=== PATIENT | male | born 1970 | race Caucasian/White ===

== ENCOUNTER 2018-07-26 18:47 | Inpatient (IN) | payer MEDICAID ==
[~2018-07-26] VITALS: Ht 180.3 cm; Wt 128.1 kg
--- NOTE | ~2018-07-26 | OP ---
PATIENT NAME: KARLEE SAAVEDRA MEDICAL RECORD: [id number] :74 LOCATION:D.M2 D.2113 ADMISSION DATE:07/26/18 SURGEON: RODRIGUEZ WEBSTER MD DATE OF OPERATION: 07/28/2018 DATE OF SERVICE: 07/28/2018 PROCEDURES: 1. Left heart catheterization. 2. Selective coronary angiography. 3. Left ventriculogram. INDICATION: Chest pain compatible with angina, cardiomyopathy. PROCEDURE IN DETAIL: After informed consent was obtained and after a detailed description of the risks, benefits as well as alternative therapies, the patient elected to proceed with angiogram and heart catheterization. The right radial area was prepped and draped in normal sterile fashion. Right radial artery was cannulated via modified Seldinger technique with placement of 5-Kosovan sheath. All catheters exchanged through this sheath. FINDINGS: Left ventriculogram was performed in standard 30-degree MACE view, reveals global hypokinesis throughout all segments. Overall ejection fraction is 30%. SELECTIVE CORONARY ANGIOGRAPHY: Left main, left anterior descending, left circumflex, right coronary artery are all smooth-walled vessels with no angiographic evidence of coronary artery disease. OVERALL IMPRESSION: 1. No angiographic evidence of coronary artery disease. 2. Normal left heart pressures. 3. Normal left ventricular systolic function. Cardiomyopathy is nonischemic. Center medical management on treatment of the cardiomyopathy. TRANSINT:[id number] Voice Confirmation ID: [id number] DOCUMENT ID: [id number] RODRIGUEZ WEBSTER MD at 0924 CC: [id number] DICTATION DATE: 07/28/18 1321 WATERPROOF BAG SEWER: 07/28/18 1339 DIS IN 07/29/18 [address] [place] [address]
--- NOTE | ~2018-07-26 | MORECARE ---
CASE MANAGEMENT DISCHARGE SUMMARY PATIENT: KARLEE SAAVEDRA UNIT: [id number] ADM DATE: 07/26/18 AGE: 48 : 74 SEX: M ROOM/BED: D.2113 AUTHOR: KWAKU HARPER PHYSICIAN: REFERRING PHYSICIAN: PAULINA CHANEY MD DATE OF SERVICE: 07/31/18 Discharge Plan Patient Name: KARLEE SAAVEDRA Facility: [facility]:[place] : 1970 Planned Disposition: Home Anticipated Discharge Date: 07/29/18 Discharge Date: 07/29/2018 Expected LOS: 3 Initial Reviewer: [email or web address] Initial Review Date: 07/31/2018 Generated: 07/31/18 9:11 am Patient Name: KARLEE SAAVEDRA Page [id number] at 0811 All edits/amendments must be made on the electronic document DICTATION DATE: 07/31/18810 WEATHERIZATION TECHNICIAN: JAI 07/31/18810 RPT#: [id number] DC DATE:07/29/18 STATUS: DIS IN [facility] [address] [place] [address] END OF REPORT
--- NOTE | ~2018-07-26 | CN ---
PATIENT NAME:KARLEE SAAVEDRA MEDICAL RECORD: [id number] : 74 LOCATION:D. D.2113 ADMIT DATE: 07/26/18 ACCOUNT: [id number] CONSULTING PHYSICIAN: RODRIGUEZ WEBSTER MD REFERRING PHYSICIAN: PAULINA CHANEY MD DATE OF CONSULTATION: 07/27/2018 DIAGNOSES: 1. Elevated troponin, non-Q-wave myocardial infarction. 2. Coronary artery disease. 3. Lower extremity edema. 4. Shortness of breath, congestive heart failure. 5. Anemia. 6. Family history of coronary artery disease. 7. Smoking. HISTORY OF PRESENT ILLNESS: This is a gentleman with no previous cardiac history who presents with a 1-month of lower extremity edema and shortness of breath, found to have an elevated troponin, nonspecific ST-T wave abnormalities on his EKG and marked lower extremity edema. PHYSICAL EXAMINATION: GENERAL APPEARANCE: Well-nourished, well-developed, appears stated age. Level of distress, comfortable. PSYCHIATRIC: Mental status, alert, normal affect. Orientation, oriented to time, place and person. EYES: Lids and conjunctiva, noninjected. No discharge, no pallor. ENT: Lips, teeth, gums, normal dentition. Oropharynx, no cyanosis, no pallor. NECK: Carotid arteries, bilateral normal upstroke, no bruits, no thrills. JUGULAR VEINS: No jugular venous pressure or distention. CERVICAL LYMPH NODES: Nontender, nonenlarged. THYROID: Not enlarged. Nontender. No nodules. LUNGS: Respiratory effort, unlabored. CHEST: Normal curvature. No thoracic deformity. No chest wall tenderness. Percussion, resonant. Auscultation, clear. No wheezes, no rales, no rhonchi. CARDIOVASCULAR: Precordial exam, nondisplaced. No heaves or pericardial thrills. Rate and rhythm, regular. Heart sounds, normal S1, normal S2. No S3, no gallop, no rub. Systolic murmur, not heard. Diastolic murmur, not heard. EXTREMITIES: No cyanosis, no edema. Peripheral pulses, full and equal in all extremities, except as noted. No bruits appreciated. ABDOMEN: Soft, nondistended. Normal aorta. No bruit. Nontender. No masses. Liver, nontender, no hepatomegaly. Spleen, nontender, no splenomegaly. MUSCULOSKELETAL: No joint tenderness. No joint swelling. No erythema. NEUROLOGICAL: Normal gait, normal strength, normal tone. SKIN: Warm and dry. OVERALL IMPRESSION: Non-Q-wave myocardial infarction with edema most likely he has hemodynamically significant coronary artery disease and decreased left ventricular function. We will start him on carvedilol give him diuresis, aspirin and Plavix. Plan for cardiac catheterization in the a.m. after IV diuresis today. TRANSINT:[id number] Voice Confirmation ID: [id number] DOCUMENT ID: [id number] CONSULT REPORT [id number] KARLEE SAAVEDRA, RODRIGUEZ COPPOLA at 0924 CC: [id number] DICTATION DATE: 07/27/18815 REELER OPERATOR: 07/27/18 08 DIS IN 07/29/18 [facility] [address] [place] [address]
--- NOTE | ~2018-07-26 | HEMODYNAMI ---
PATIENT:KARLEE SAAVEDRA MEDICAL RECORD: [id number] : 74 [id number] ADMISSION DATE: 07/26/18 Generatedon:07/28/201813:19 Patient name: KARLEE SAAVEDRA Patient #: [id number] SSN: : 1970 Date of study: 07/28/2018 Page: Of Hemodynamic Procedure Report Patient Data Patient Demographics Procedure consent was obtained First Name: KARLEE Gender: Male Last Name: QUENTIN : 1970 Patient #: [id number] Age: 48 year(s) Race: Unknown Additional ID: [id number] Contact details [address]: [address] [place] [address] State: [place] City: [place] Zip code: [address] Past Medical History Allergies: No known allergies Admission Admission Data Admission Date: 07/26/2018 Admission Time: 22:23 Room #: [facility] Height (in.): 71 BSA: 2.43 (m2) Height (cm.): 180.34 BMI: 38.87 (kg/m2) Weight (lbs.): 278.67 Weight (kg.): 126.4 Lab Results Lab Result Date: 07/28/2018 Lab Result Time: 0:00 Biochemistry Name Units Result Min Max BUN mg/dl 14 --(--*-)-- 7 18 Creatinine mg/dl 1 --(--*-)-- 0.6 1.3 CBC Name Units Result Min Max Hemoglobin g/dl 12.1 *-(----)-- 13.5 17.5 Procedure Procedure Types Cath Procedure Diagnostic Procedure [facility] w/Coronaries Sedation Charges Moderate Sedation up to 15 minutes Procedure Description Procedure Date Procedure Date: 07/28/2018 Procedure Start Time: 13:11 Procedure End Time: 13:19 Procedure Staff Name Function Enmanuel Kulkarni MD Performing Physician Jelena Meneses RT Monitor Raz Gutierrez RN Nurse Trevor Mccurdy RN Nurse Bridgett Cazares RT Scrub Procedure Data Cath Procedure Fluoroscopy Diagnostic fluoroscopy Total fluoroscopy Time: 1.6 time: 1.6 min min Diagnostic fluoroscopy Total fluoroscopy dose: 886 dose: 886 mGy mGy Contrast Material Contrast Material Type Amount (ml) Isovue 300 57 Entry Location Entry Primary Successful Side Size Upsize Upsize Entry Closure [place] ccessful Closure Location (Fr) 1 (Fr) 2 (Fr) Remarks Device Remarks Radial Right 6 Fr Mechanical artery Short Compression Estimated blood loss: 10 ml Diagnostic catheters Device Type Used For End Catheter Placement DIAGNOSTIC [place] 110cm 5 Left Coronary Fr catheter ([id number]) Angiography Procedure Complications No complications Procedure Medications Medication Administration Route Dosage Oxygen etCO2 Nasal cannula 2 l/min Heparin Flush Bag added to field 2 bags (1000units/500ml NS) 0.9% NaCl I.V. 100 ml/hr Fentanyl I.V. 50 mcg Versed I.V. 1 mg Fentanyl I.V. 50 mcg Versed I.V. 1 mg Fentanyl I.V. 50 mcg Radial Cocktail added to field 1 syringe (Verapomil 2mg/Nitro 400mcg/Heparin 1500units) Radial Cocktail I.A. 1 syringe (Verapomil 2mg/Nitro 400mcg/Heparin 1500units) Fentanyl I.V. 50 mcg Hemodynamics Rest BSA: 2.43 (m2) HGB: 12.1 (g/dl) O2 Consumption: Estimated: 308.4 (ml/min) O2 Con sumption indexed: Estimated:126.91 (ml/min/m) Heart Rate: 87 (bpm) Snapshots Pre Cath Intra NCS Post Cath Vital Signs Time Heart Resp SPO2 etCO2 NIBP (mmHg) Rhythm Pain Sedation Rate (ipm) (%) (mmHg) Status Level (bpm) 12:56:39 85 17 100 0 145/106(121) NSR 0 (11) 10(A) , No pain 13:00:50 85 16 100 0 147/107(123) NSR 0 (11) 10(A) , No pain 13:05:05 83 17 92 0 146/107(127) NSR 0 (11) 10(A) , No pain 13:09:14 85 16 97 0 127/100(114) NSR 0 (11) 10(A) , No pain 13:13:24 79 16 98 0 139/86(112) NSR 0 (11) 9(A) , No pain 13:17:32 80 16 94 0 128/89(104) NSR 0 (11) 9(A) , No pain 13:18:42 80 17 86 0 136/89(103) NSR 0 (11) 9(A) , No pain Medications Time Medication Route Dose Verified Delivered Reason Notes Effectiveness by by 12:58:20 Oxygen etCO2 2 l/min Enmanuel Crandall Per Nasal Shad Gutierrez RN physician cannula 12:58:54 Heparin Flush added 2 bags Enmanuel Crandall used for Bag to Shad Gutierrez RN procedure (1000units/500ml field NS) 12:59:03 0.9% NaCl I.V. 100 Enmanuel Crandall Per ml/hr Shad Gutierrez RN physician 13:03:25 Fentanyl I.V. 50 mcg Enmanuel Crandall for sedation Shad Gutierrez RN 13:03:31 Versed I.V. 1 mg Enmanuel Crandall for anxiety Shad Gutierrez RN 13:05:22 Fentanyl I.V. 50 mcg Enmanuel Crandall for sedation Shad Gutierrez RN 13:05:26 Versed I.V. 1 mg Enmanuel Crandall for anxiety Shad Gutierrez RN 13:07:34 Fentanyl I.V. 50 mcg Enmanuel Crandall for sedation Shad Gutierrez RN 13:11:43 Fentanyl I.V. 50 mcg Enmanuel Crandall for sedation Shad Gutierrez RN 13:12:13 Radial Cocktail added 1 Enmanuel Crandall used for (Verapomil to syringe Shad Gutierrez RN procedure 2mg/Nitro field 400mcg/Heparin 1500units) 13:12:19 Radial Cocktail I.A. 1 Enmanuelkeli Singer for (Verapomil syringe Shad Kulkarni MD vasodilation 2mg/Nitro 400mcg/Heparin 1500units) Procedure Log Time Note 12:25:35 Patient Height : 71 inches 12:25:43 Patient Weight : 278.67 lbs 12:26:23 Lab Result : Creatinine 1 mg/dl 12:26:23 Lab Result : BUN 14 mg/dl 12:26:23 Lab Result : Hemoglobin 12.1 g/dl 12:26:56 Diagnostic Cath status Elective 12:27:01 Raz Gutierrez RN sent for patient. Start room use. 12:55:36 Vital chart was started 12:57:47 Time tracking: Regular hours (M-F 7:00 - 5:00) 12:57:52 Plan of Care:Hemodynamics will remain stable., Cardiac rhythm will remain stable., Comfort level will be maintained., Respiratory function will remain adequate., Patient/ family verbilizes understanding of procedure., Procedure tolerated without complication., Recovers from procedure without complications.. 12:57:59 Patient received from Med II to CCL 2 Alert and oriented. Tansferred to table in Supine position. 12:58:00 Warm blankets applied, and jesenia hugger turned on for patient comfort. 12:58:01 Correct patient and procedure confirmed by team. 12:58:02 Signed procedure consent form obtained from patient. 12:58:03 ECG and BP/O2 sat monitors applied to patient. 12:58:06 Baseline sample Acquired. 12:58:10 Rhythm: sinus rhythm 12:58:11 Full Disclosure recording started 12:58:16 H&P Date Dictated: 07/27/2018 Within 30 days and on chart.. 12:58:18 Pre-procedure instructions explained to patient. 12:58:19 Family in waiting room. 12:58:20 Oxygen 2 l/min etCO2 Nasal cannula was administered by Raz Gutierrez RN; Per physician; 12:58:21 Patient NPO since Midnight. 12:58:27 Patient allergic to No known allergies 12:58:30 Is the patient allergic to Iodine/contrast media? No. 12:58:32 Is patient on blood thinner?Yes 12:58:35 ACC The patient was administered the following blood thiners within the last 24 hours: ACCPlavix 12:58:39 Patient diabetic? No. 12:58:42 Snore? Yes 12:58:43 Sleep apnea? Yes 12:58:54 Heparin Flush Bag (1000units/500ml NS) 2 bags added to field was administered by Raz Gutierrez RN; used for procedure; 12:59:03 0.9% NaCl 100 ml/hr I.V. was administered by Raz Gutierrez RN; Per physician; 12:59:06 Airway obstruction? Yes Possible COPD\Emphyzema 12:59:17 IV patent on arrival in right forearm with 0.9% NaCl at [facility]. 12:59:23 Lab results completed and on chart. 12:59:27 Right Radial & Right Groin area was prepped with chlora-prep and draped in sterile fashion 12:59:28 Alarms reviewed by RYousif N. 12:59:28 Sharps counted by scrub and verified by R.N. 12:59:29 Physician paged 12:59:30 Physician arrived 12:59:31 --------ALL STOP TIME OUT------ 12:59:31 Final Timeout: patient, procedure, and site verified with staff and physician. All members of the team are in agreement. 12:59:35 Right Radial & Right Groin site verified by team. 12:59:40 Physical assessment completed. ASA score P 2 - A patient with mild systemic disease as per Enmanuel Kulkarni MD. 12:59:44 Sedation plan: IV Moderate Sedation Medication:Versed, Fentanyl 12:59:49 Use device set Radial Dx or PCI 12:59:52 ACIST Syringe (59398) opened to sterile field. 12:59:53 Medline Cath Pack ([id number]) opened to sterile field. 12:59:53 Bag Decanter (2002S) opened to sterile field. 12:59:54 DIAGNOSTIC WIRE .035 260cm J wire (918905) opened to sterile field. 12:59:55 ACIST Hand Control (78035) opened to sterile field. 12:59:55 ACIST Manifold (98596) opened to sterile field. 12:59:56 Tegaderm 4 x 4 (1626W) opened to sterile field. 12:59:57 MBrace Wrist Support ([id number]) opened to sterile field. 12:59:59 NEEDLE Cook 21G 4cm Radial (Y30834) opened to sterile field. 13:00:02 SHEATH 6Fr Prelude Radial ([id number]) opened to sterile field. 13:03:25 Fentanyl 50 mcg I.V. was administered by Raz Gutierrez RN; for sedation; 13:03:31 Versed 1 mg I.V. was administered by Raz Gutierrez RN; for anxiety; 13:03:53 Zero performed for pressure channel P1 13:05:22 Fentanyl 50 mcg I.V. was administered by Raz Gutierrez RN; for sedation; 13:05:26 Versed 1 mg I.V. was administered by Raz Gutierrez RN; for anxiety; 13:07:34 Fentanyl 50 mcg I.V. was administered by Raz Gutierrez RN; for sedation; 13:11:42 Procedure started. 13:11:43 Fentanyl 50 mcg I.V. was administered by Raz Gutierrez RN; for sedation; 13:11:54 Local anesthetic to right radial artery with Lidocaine 2% by Enmanuel Kulkarni MD.INITIAL ACCESS ONLY 13:12:05 A 6 Fr Short sheath was inserted into the Right Radial artery 13:12:13 Radial Cocktail (Verapomil 2mg/Nitro 400mcg/Heparin 1500units) 1 syringe added to field was administered by Raz Gutierrez RN; used for procedure; 13:12:19 Radial Cocktail (Verapomil 2mg/Nitro 400mcg/Heparin 1500units) 1 syringe I.A. was administered by Enmanuel Kulkarni MD; for vasodilation; 13:12:40 A DIAGNOSTIC [place] 110cm 5 Fr catheter (355561) was advanced over the wire and used for Left Coronary Angiography. 13:12:55 J wire advanced. 13:13:04 LV angiography performed. 13:14:25 EF : 25 % 13:14:39 LCA angiography performed. 13:16:06 RCA angiography performed. 13:16:08 Catheter removed. 13:16:30 Sheath removed intact; hemostasis achieved with Mechanical Compression to the Right Radial artery. 13:16:35 TR BAND Large ([id number]) opened to sterile field. 13:16:38 Procedure ended.(Physican Out) 13:17:11 Fluoroscopy time 01.60 minutes. 13:17:21 Fluoroscopy dose: 886 mGy 13:17:21 Flurop Dose total: 886 13:17:27 Contrast amount:Isovue 300 57ml. 13:17:29 Sharps counted by scrub and verified by R.N. 13:17:36 TR band inflated with 12cc of air. 13:17:37 Insertion/operative site no bleeding no hematoma. 13:17:44 Post Procedure Pulses reassessed and unchanged 13:17:48 Post-procedure physical assessment completed. ASA score P 2 - A patient with mild systemic disease as per Enmanuel Kulkarni MD. 13:17:51 Post procedure rhythm: unchanged. 13:17:54 Estimated blood loss: 10 ml 13:18:00 Post procedure instruction explained to patient.Patient verbalizes understanding. 13:18:19 Procedure and supply charges have been captured, reviewed, submitted and are correct. 13:18:48 Procedure Complication : No complications 13:18:52 Vital chart was stopped 13:18:53 See physician's report for complete and final results. 13:18:55 Report given to Pre/Post Procedure Room. 13:18:59 Patient transfered to Pre/Post Procedure Room with Bed. 13:19:01 Procedure ended. 13:19:01 Full Disclosure recording stopped 13:19:04 End room use (Document Last) Device Usage Item Name Manufacture Quantity Catalog Number Hospital Part Current M inimal Lot# / Charge Number Stock Stock Serial# Code ACIST Syringe Acist 1 03048 884725 815848 681433 2 0 (06585) Medical Systems Inc Medline Cath Cardinal 1 [id number] 223735 82202 132641 5 [employer]Thor.com ([id number]) Bag Decanter Microtek 1 2001S 459603 61702 283477 5 (2001S) Medical Inc. DIAGNOSTIC WIRE St Arpit 1 830544 700608 507198 190115 3 0 .035 260cm J wire (725600) ACIST Hand Acist 1 64406 775829 327759 021253 5 Control (57437) Medical Systems Inc ACIST Manifold Acist 1 81352 472224 600236 532824 5 (40248) Medical Systems Inc Tegaderm 4 x 4 3M 1 1626W 443472 899816 126379 5 (1626W) MBrace Wrist Advanced 1 140-0250-00 212225 13553 359038 5 Support Vascular ([id number]) Dynamics NEEDLE Cook 21G Cook Medical 1 [id number] 112751 934300 688819 5 4cm Radial (T82948) SHEATH 6Fr Merit 1 [id number] 747545 102831 822028 5 Prelude Radial Medical ([id number]) DIAGNOSTIC Terumo 1 40-5301 722396 603185 273480 5 [place] 110cm 5 Fr catheter (508524) TR BAND Large Terumo 1 [id number] 496697 205940 965573 4 0 ([id number]) Signature Audit [place] Stage Time Signature Unsigned Intra-Procedure 07/28/2018 Jelena Meneses 1:19:48 PM RT(R) Signatures Monitor : Jelena Meneses Signature : RT Date : Time : [address] [address] [address]
--- NOTE | ~2018-07-26 | EC ---
PATIENT:KARLEE SAAVEDRA DATE OF SERVICE: 07/26/18 SEX: M MEDICAL RECORD: [id number] DATE OF : 74 LOCATION:D.M2 D.211 AGE OF PATIENT: 48 ADMISSION DATE: 07/26/18 REFERRING PHYSICIAN: INTERPRETING PHYSICIAN: RODRIGUEZ KULKARNI MD ECHOCARDIOGRAM REPORT ECHO CHARGES 4 ECHO COMPLETE Date: 07/27/18 CLINICAL DIAGNOSIS: EDEMA ECHOCARDIOGRAPHIC MEASUREMENTS (adult normal given) AC root (d.<3.7cm) 4.0 cm LV Septum d (<1.2 cm> 1.2 cm Valve Excursion 1.9 cm LV Septum (systole) 1.4 cm Left Atria (s.<4.0cm> 4.0 cm LVPW d(<1.2cm) 1.6 cm RV (d.<2.3cm) 5.0 cm LVPW (sytole) 1.7 cm LV diastole(<5.6CM) 6.9 cm MV E-F(>70mm/sec) cm LV systole 5.5 cm LVOT Diameter 2.0 cm MV exc.(>10mm) 1.2 cm Est.ejection fraction (50-75%) % DOPPLER: LVIT cm/sec A cm/sec E 126 cm/sec LA cm/sec RVSP 35 mmHg LVOT 93 cm/sec AOP1/2T m/s Asc. Ao 164 cm/sec RVOT 93 cm/sec RA cm/sec PA 143 cm/sec AV Gradient Peak 10.75mmHg AV Mean 5.37 mmHg AV Area 1.8 cm MV Gradient Peak 6.45 mmHg MV Mean 2.05 mmHg MV Area cm COMMENTS: Assistant Teacher Primary: Divya LOUIS Oil Gauger: 1 Dr. Kulkarni TAPE# PACS Pericardial Effusion N DATE OF SERVICE: 07/27/2018 ECHOCARDIOGRAM DATE OF SERVICE: 07/27/2018 FINDINGS: 1. Left ventricular chamber size is mildly dilated. Left ventricular systolic function is moderately reduced. Overall ejection fraction in the 35% range. 2. Left atrium is upper limits of normal at 4.0 cm. Right atrium and right ECHOCARDIOGRAM REPORT [id number] KARLEE SAAVEDRA ventricle chamber sizes are mildly dilated. 3. Valvular structures have normal structure and motion. 4. Doppler interrogation reveals mild mitral regurgitation, mild tricuspid regurgitation, no other valvular insufficiency or stenosis. Pulmonary systolic pressure is normal estimated 35 mmHg. 5. No evidence of pericardial effusion or left ventricular thrombus. TRANSINT:[id number] Voice Confirmation ID: [id number] DOCUMENT ID: [id number] RODRIGUEZ KULKARNI MD at 0924 CC: [id number] DICTATION DATE: 07/27/18 1205 JEWEL HOLE FINISH OPENER: 07/27/18 1218 DIS IN 07/29/18 [place] [id number] [place] [id number]
[2018-07-26 20:14] LABS: BASOPHILS 0.4 % (0-2); EOSINOPHILS 1.6 % (0-7); HEMATOCRIT 39.4 % (42.0-54.0); HEMOGLOBIN 12.1 g/dL (13.5-17.5); IMMATURE GRANULOCYTES 0.1 % (0-5); LYMPHOCYTES 20.5 % (15-50); MCHC 30.7 g/dL (31.0-37.0); MEAN PLATELET VOLUME 9.6 fL (7.4-10.4); MONOCYTES 10.3 % (2-11); NEUTROPHILS 67.1 % (40-80); PLATELET COUNT 296 10x3/uL (130-400); RBC 5.25 10x6/uL (4.20-6.10); RDW 16.2 % (11.5-14.5); WBC 6.7 10x3/uL (4.8-10.8)
[2018-07-26 20:28] LABS: ALBUMIN 2.4 g/dL (3.4-5.0); ALKALINE PHOSPHATASE 157 U/L (46-116); ALT (SGPT) 32 U/L (10-68); BILIRUBIN - TOTAL 0.72 mg/dL (0.2-1.3); CALC OSMOLALITY 279 mosm/kg (275-300); CALCIUM 8.1 mg/dL (8.5-10.1); CARBON DIOXIDE 30.1 mmol/L (21.0-32.0); CHLORIDE - SERUM 101 mmol/L (98-107); CREATININE - SERUM 0.9 mg/dL (0.6-1.3); GLUCOSE 107 mg/dL (74-106); POTASSIUM - SERUM 3.9 mmol/L (3.5-5.1); PROTEIN - SERUM 6.2 g/dL (6.4-8.2); SODIUM 140 mmol/L (136-145); UREA NITROGEN 15 mg/dL (7-18); eGFR NON AFRICAN AMERICAN > 90 mL/min (90-120)
[2018-07-26 20:41] LABS: CKMB 3.9 U/L (0.0-3.6); CREATINE KINASE 178 UL (21-232); PRO BNP 5381 pg/mL (0-125)
[2018-07-26 20:42] LABS: TROPONIN-I 0.278 ng/mL (0.000-0.060)
[2018-07-27 00:19] VITALS: Ht 180.3 cm; Wt 128.1 kg
[2018-07-27 00:46] VITALS: BP 158/110
[2018-07-27 02:57] LABS: BASOPHILS 0.5 % (0-2); EOSINOPHILS 2.4 % (0-7); HEMATOCRIT 39.2 % (42.0-54.0); HEMOGLOBIN 12.1 g/dL (13.5-17.5); IMMATURE GRANULOCYTES 0.3 % (0-5); LYMPHOCYTES 22.1 % (15-50); MCH 23.3 pg (26.0-34.0); MCHC 30.9 g/dL (31.0-37.0); MCV 75.4 fL (80.0-100.0); MEAN PLATELET VOLUME 9.8 fL (7.4-10.4); MONOCYTES 12.3 % (2-11); NEUTROPHILS 62.4 % (40-80); PLATELET COUNT 322 10x3/uL (130-400); RDW 16.2 % (11.5-14.5); WBC 7.4 10x3/uL (4.8-10.8)
[2018-07-27 03:23] LABS: CALC OSMOLALITY 276 mosm/kg (275-300); CALCIUM 8.2 mg/dL (8.5-10.1); CARBON DIOXIDE 32.5 mmol/L (21.0-32.0); CHLORIDE - SERUM 100 mmol/L (98-107); GLUCOSE 102 mg/dL (74-106); PRO BNP 5340 pg/mL (0-125); SODIUM 138 mmol/L (136-145); TROPONIN-I 0.277 ng/mL (0.000-0.060); UREA NITROGEN 14 mg/dL (7-18); eGFR NON AFRICAN AMERICAN 85 mL/min (90-120)
[2018-07-27 04:00] VITALS: BP 149/101
[2018-07-27 08:48] VITALS: BP 139/96
[2018-07-27 10:37] LABS: CHOL - HDL RATIO 3.1 ratio (2.3-4.9); LDL-HDL RATIO 1.9 ratio (1.5-3.5); TROPONIN-I 0.259 ng/mL (0.000-0.060)
[2018-07-27 12:21] VITALS: BP 110/70
[2018-07-27 12:32] LABS: % SATURATION 6 % (15-55); IRON 30 ug/dl (35-150); TOTAL IRON BIND CAPACITY 486 ug/dl (260-445)
[2018-07-27 12:35] LABS: UNSAT IRON BIND CAPACITY 456 ug/dl (150-375)
[2018-07-27 16:56] VITALS: BP 126/92
[2018-07-27 23:12] VITALS: BP 136/90
[2018-07-28 02:38] VITALS: BP 103/69
[2018-07-28 05:24] LABS: BASOPHILS 0.8 % (0-2); HEMATOCRIT 38.4 % (42.0-54.0); HEMOGLOBIN 11.6 g/dL (13.5-17.5); IMMATURE GRANULOCYTES 0.1 % (0-5); MCH 22.8 pg (26.0-34.0); MCHC 30.2 g/dL (31.0-37.0); MCV 75.6 fL (80.0-100.0); MONOCYTES 11.5 % (2-11); NEUTROPHILS 66.6 % (40-80); PLATELET COUNT 329 10x3/uL (130-400); RBC 5.08 10x6/uL (4.20-6.10); RDW 16.3 % (11.5-14.5); WBC 7.2 10x3/uL (4.8-10.8)
[2018-07-28 05:40] LABS: CALC OSMOLALITY 275 mosm/kg (275-300); CALCIUM 8.5 mg/dL (8.5-10.1); CARBON DIOXIDE 30.3 mmol/L (21.0-32.0); CHLORIDE - SERUM 99 mmol/L (98-107); CHOLESTEROL, TOTAL 141 mg/dL (0-200); CREATININE - SERUM 1.1 mg/dL (0.6-1.3); GLUCOSE 114 mg/dL (74-106); HDL CHOLESTEROL 47 mg/dL (32-96); LDL CHOLESTEROL 85 mg/dL (0-100); LDL-HDL RATIO 1.8 ratio (1.5-3.5); POTASSIUM - SERUM 3.8 mmol/L (3.5-5.1); SODIUM 137 mmol/L (136-145); TRIGLYCERIDE 48 mg/dL (30-200); UREA NITROGEN 14 mg/dL (7-18); eGFR NON AFRICAN AMERICAN 76 mL/min (90-120)
[2018-07-28 06:07] VITALS: BP 139/103
[2018-07-28 08:00] VITALS: BP 123/78
[2018-07-28 09:18] LABS: FOLATE (FOLIC ACID) - SERUM 12.1 ng/mL (>3.0)
[2018-07-28 14:50] LABS: UDS - AMPHET POSITIVE QUAL (NEGATIVE); UDS - BARB NEGATIVE QUAL (NEGATIVE); UDS - BENZO POSITIVE QUAL (NEGATIVE); UDS - COCAINE NEGATIVE QUAL (NEGATIVE); UDS - OPIATE POSITIVE QUAL (NEGATIVE); UDS - PCP NEGATIVE QUAL (NEGATIVE); UDS - THC NEGATIVE QUAL (NEGATIVE)
[2018-07-28 15:04] LABS: APPEARANCE CLEAR (CLEAR); BILIRUBIN 1+ (NEGATIVE); COLOR AMBER (YELLOW); GLUCOSE NEGATIVE (NEGATIVE); KETONE NEGATIVE (NEGATIVE); NITRITE NEGATIVE (NEGATIVE); PROTEIN 2+ mg/dL (NEGATIVE)
[2018-07-28 15:06] LABS: BACTERIA FEW /hpf (NONE SEEN); RED CELLS - URINE 0-5 /hpf (0-5); WHITE CELLS - URINE 0-5 /hpf (0-5)
[2018-07-28 20:00] VITALS: BP 121/90
[2018-07-29] VITALS: BP 100/68
[2018-07-29 05:18] LABS: BASOPHILS 0.6 % (0-2); EOSINOPHILS 0.6 % (0-7); HEMATOCRIT 42.7 % (42.0-54.0); HEMOGLOBIN 13.3 g/dL (13.5-17.5); IMMATURE GRANULOCYTES 0.1 % (0-5); LYMPHOCYTES 22.9 % (15-50); MCH 23.5 pg (26.0-34.0); MCHC 31.1 g/dL (31.0-37.0); MCV 75.4 fL (80.0-100.0); MEAN PLATELET VOLUME 10.2 fL (7.4-10.4); MONOCYTES 8.5 % (2-11); NEUTROPHILS 67.3 % (40-80); PLATELET COUNT 304 10x3/uL (130-400); RBC 5.66 10x6/uL (4.20-6.10); RDW 16.7 % (11.5-14.5)
[2018-07-29 05:34] LABS: CALC OSMOLALITY 274 mosm/kg (275-300); CALCIUM 8.1 mg/dL (8.5-10.1); CARBON DIOXIDE 32.1 mmol/L (21.0-32.0); CHLORIDE - SERUM 100 mmol/L (98-107); CREATININE - SERUM 1.1 mg/dL (0.6-1.3); GLUCOSE 113 mg/dL (74-106); POTASSIUM - SERUM 3.9 mmol/L (3.5-5.1); SODIUM 136 mmol/L (136-145); eGFR NON AFRICAN AMERICAN 76 mL/min (90-120)
[2018-07-29 05:54] LABS: UREA NITROGEN 19 mg/dL (7-18)
[2018-07-29 08:39] VITALS: BP 138/90
[2018-07-29 10:42] VITALS: BP 119/81
[2018-07-29] MEDS ORDERED: VIBRAMYCIN 100100 MG PO (15:33)
[2018-07-29] MEDS ORDERED: PLAVIX75 MG PO (15:33)
[2018-07-29] MEDS ORDERED: COREG12.5 MG PO (15:33)
[2018-07-29] MEDS ORDERED: ASPIRIN81 MG PO (15:34)
[2018-07-29] MEDS ORDERED: PROTONIX40 MG PO (15:34)
[2018-07-29] MEDS ORDERED: BENZONATATE200 MG PO (15:34)
[2018-07-29] MEDS ORDERED: LASIX40 MG PO (15:34)
[2018-07-29] MEDS ORDERED: MUCINEX DM ER1 EAC1 PO (15:34)
== END 2018-07-29 19:22 | disposition home or self-care (01) | DRG 280 ==
LOC: D.ER 18:47 → D.M2 22:23
PROVIDERS: Emergency Medicine; Family Medicine; Internal Medicine Interventional Cardiology; Internal Medicine Nephrology
PROC: B2151ZZ Fluoroscopy of Left Heart using Low Osmolar Contrast (ICD-10-PCS; 2018-07-28)
PROC: 4A023N7 Measurement of Cardiac Sampling and Pressure, Left Heart, Percutaneous Approach (ICD-10-PCS; 2018-07-28)
PROC: B2111ZZ Fluoroscopy of Multiple Coronary Arteries using Low Osmolar Contrast (ICD-10-PCS; principal; 2018-07-28 12:45)
DX: I21.4 Non-ST elevation (NSTEMI) myocardial infarction (principal); I50.21 Acute systolic (congestive) heart failure; F17.213 Nicotine dependence, cigarettes, with withdrawal; L03.116 Cellulitis of left lower limb; L03.115 Cellulitis of right lower limb; I42.9 Cardiomyopathy, unspecified; I25.10 Atherosclerotic heart disease of native coronary artery without angina pectoris; D50.9 Iron deficiency anemia, unspecified; Z91.19 Patient's noncompliance with other medical treatment and regimen; F15.10 Other stimulant abuse, uncomplicated; I11.0 Hypertensive heart disease with heart failure

== ENCOUNTER → 2021-04-16 14:31 | Outpatient (CLI) | payer MEDICAID ==
[2020-11-07 10:15] VITALS: BMI 33.4
[~2021-04-16 14:31] MED LIST: ASPIRIN81 MG PO; BENZONATATE200 MG PO; COREG12.5 MG PO; LASIX40 MG PO; LEVOFLOXACIN500 MG PO; MUCINEX DM ER1 EAC1 PO; NICODERM CQ1 EAC3 TRANSDERM; PLAVIX75 MG PO; PROTONIX40 MG PO; TYLENOL W/CODEI1 TAB PO; VIBRAMYCIN 100100 MG PO
== END | disposition home or self-care (01) ==
LOC: D.LAB 14:31
PROVIDERS: ATTEND Internal Medicine Pulmonary Disease
DX: J44.9 Chronic obstructive pulmonary disease, unspecified (principal)